=== PATIENT | female | born 1975 | race Caucasian/White ===

== ENCOUNTER 2017-04-05 17:21 | Emergency (ER) | payer OTHER ==
[~2017-04-05] VITALS: Ht 162.6 cm; Wt 104.5 kg
[~2017-04-05 17:21] MED LIST: COLL PO; GABA-504 PO; HYOS-19 PO; OMEP-113 PO; PHEN-528 PO
[2017-04-05 17:23] VITALS: BP 147/107; PULSE 97; RESP 18; O2SAT 100
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
--- NOTE | 2017-04-05 17:59 | DRSVH ---
PROCEDURE: X-RAY CHEST ONE VIEW, PORTABLE ([id number]) INDICATIONS: CP TECHNIQUE: One view of the chest was acquired. COMPARISON: [facility], CR, CHEST 2VW, 05/21/2013, 9:37. FINDINGS: Surgical changes and devices: None. Lungs and pleura: No pleural effusions or pneumothorax. Mild increased pulmonary vascularity. Mediastinum: Mediastinal contours appear normal. Heart size is normal. Bones and chest wall: No suspicious bony lesions. Overlying soft tissues appear unremarkable. IMPRESSION: Mild increased pulmonary vascularity. Dictated by: Nazanin Allen M.D. on 04/05/2017 at 17:56 Approved by: Nazanin Allen M.D. on 04/05/2017 at 17:57
[2017-04-05 18:35] LABS: BASOPHILS % (AUTO) 0.5 % (0-3); EOSINOPHILS % (AUTO) 2.5 % (0-5); MONOCYTES % (AUTO) 7.2 % (4-12); Mean Corpuscular Hemoglobin 29.2 pg (27.0-35.0); Mean Corpuscular Volume 86.3 fL (81-100); NEUTROPHILS % (AUTO) 60.3 % (40-74); Platelet Count 254 bil/L (150-400)
[2017-04-05 18:55] LABS: TROPONIN T < 0.010 ug/L (0.0-0.011)
[2017-04-05 19:04] LABS: Magnesium 1.9 mg/dL (1.6-2.6)
[2017-04-05] MEDS ORDERED: FUR20 PO (20:51)
[2017-04-05 20:55] VITALS: BP 147/107; PULSE 97; RESP 18; O2SAT 100
== END 2017-04-05 20:52 | disposition home or self-care (01) ==
LOC: SED 17:21
DX: R60.9 Edema, unspecified (principal); R07.9 Chest pain, unspecified; I10 Essential (primary) hypertension; M32.9 Systemic lupus erythematosus, unspecified; K21.9 Gastro-esophageal reflux disease without esophagitis; F17.200 Nicotine dependence, unspecified, uncomplicated; Z88.5 Allergy status to narcotic agent